=== PATIENT | female | born 1965 | race Caucasian/White ===

== ENCOUNTER 2023-11-16 17:03 | Emergency (ER) | payer BC, OTHER ==
[2023-11-16] MEDS: HYDROmorphone 0.5 MG/0.5 ML Syringe IM ONE (17:34)
[2023-11-16] MEDS: Ketorolac 60 MG/2 ML SDV IM ONE (17:34)
[2023-11-16] MEDS: Acetaminophen/HYDROcodone 325-5 MG Tab PO ONE (19:13)
== END 2023-11-16 20:49 | disposition home or self-care (01) ==
LOC: JD.ED 17:03
DX: M54.50 Low back pain, unspecified (principal); M25.551 Pain in right hip; E11.9 Type 2 diabetes mellitus without complications; F17.210 Nicotine dependence, cigarettes, uncomplicated; Z88.0 Allergy status to penicillin; Z88.6 Allergy status to analgesic agent; W01.0XXA Fall on same level from slipping, tripping and stumbling without subsequent striking against object, initial encounter
CPT/HCPCS: 72131; 72192; 73552; 96372; 99284; A9270; J1170; J1885